=== PATIENT | male | born 1980 | race Caucasian/White ===

== ENCOUNTER 2023-07-28 19:58 | Emergency (ER) | payer MEDICARE, SELFPAY ==
[2023-07-28 20:01] VITALS: BP 149/96; PULSE 113; RESP 18; TEMP 36.6; O2SAT 99
--- NOTE | 2023-07-28 20:03 | ECG_ITS ---
Measurements Intervals [place] Rate: 109 P: 51 SC: 140 QRS: 42 QRSD: 109 T: 61 QT: 322 QTc: 434 Interpretive Statements SINUS TACHYCARDIA INCOMPLETE RIGHT BUNDLE BRANCH BLOCK NONSPECIFIC T-WAVE ABNORMALITY- LAT/HIGH LAT LEADS ABNORMAL ECG NO PREVIOUS ECG AVAILABLE FOR COMPARISON Electronically Signed On 07-29-2023 6:29:51 [employer] by Juarez Rivera D.O.
== END 2023-07-28 20:10 | disposition left against medical advice (07) ==
PROVIDERS: Emergency Provider Emergency Medicine
DX: R00.2 Palpitations (principal)
CPT/HCPCS: 93005; 99199